=== PATIENT | female | born 1975 | race Caucasian/White ===

== ENCOUNTER 2020-04-10 14:48 | Outpatient (CLI) | payer OTHER, SELFPAY ==
[2020-04-10 11:56] LABS: Basophils Absolute Auto 0.1 K/mm3 (0.0-0.1); Basophils Percent Auto 0.8 % (0.2-1.2); Eosinophils Absolute Auto 0.1 K/mm3 (0-0.3); Eosinophils Percent Auto 1.4 % (0-4.4); Immature Granulocyte Absolute 0.02 K/mm3 (0.00-0.031); Immature Granulocyte Percent A 0.3 % (0-0.5); Lymphocytes Absolute Auto 1.75 K/mm3 (0.9-3.2); Lymphocytes Percent Auto 29.6 % (18.3-44.2); Mean Corpuscular HGB Conc 31.3 g/dl (32-36); Mean Corpuscular Hemoglobin 25.6 pg (26-34); Mean Corpuscular Volume 82.1 fl (80-100); Mean Platelet Volume 11.1 fl (7.4-10.4); Monocytes Absolute Auto 0.6 K/mm3 (0.1-0.6); Monocytes Percent Auto 9.6 % (2.6-8.5); Neutrophils Absolute Auto 3.5 K/mm3 (1.3-6.7); Neutrophils Percent Auto 58.3 % (45.5-73.1); Platelet Count Result 221 k/mm3 (150-375); Red Cell Distribution Width 15.5 % (11.5-14.5); White Blood Count 5.9 K/mm3 (4.5-10.0)
== END 2020-04-10 14:49 | disposition home or self-care (01) ==
LOC: ANHSURGERY 05-15 14:48
PROVIDERS: Visit Provider Obstetrics & Gynecology
DX: Z01.812 Encounter for preprocedural laboratory examination (principal); N93.9 Abnormal uterine and vaginal bleeding, unspecified
CPT/HCPCS: 36415; 85025; 86850; 86900; 86901

== ENCOUNTER 2020-04-14 02:33 | Outpatient (CLI) | payer OTHER, SELFPAY ==
[2020-04-14 22:41] LABS: SARS-CoV-2 RNA PCR Negative
== END 2020-04-14 02:34 | disposition home or self-care (01) ==
LOC: ANHCOVIDDT 02:33
PROVIDERS: Visit Provider Obstetrics & Gynecology
DX: Z01.818 Encounter for other preprocedural examination (principal); Z20.828 Contact with and (suspected) exposure to other viral communicable diseases
CPT/HCPCS: 87635; C9803; U0003

== ENCOUNTER 2020-04-17 00:07 | Day surgery (SDC) | payer OTHER, SELFPAY ==
[2020-04-08 10:49] VITALS: BMI 24.5
--- NOTE | 2020-04-14 14:14 | PM.IMHP ---
H&P: HPI History of Present Illness Date/Time: 04/14/20 14:14 Chief complaint: enlarge uterus,pelvic pain,exc bleeding Narrative: Muriel Gallegos is a 45 year old female who is admitted robotic hysterectomy and bilateral salpingectomy. She has pain and discomfort with a large fibroid uterus [id number] by ultrasound. She is finished with childbearing. Risks and benefits of this procedure reviewed including but not exclusive , aspiration pneumonia, bleeding, transfusion, perforation injury to bowel, bladder ureters, or other internal organs with need for laparotomy. She voiced good understanding. She had all questions answered. She asked to proceed Review of Systems Review of Systems: All systems reviewed & are unremarkable except as noted in HPI and below PMFSH Social History Social History Smoking status: Never smoker Spiritual care concerns: No Meds Home Medications and Allergies Home Medications Medication Instructions Recorded Confirmed Type multivitamin 1 tablet PO DAILY 04/08/20 04/08/20 History Allergies Allergy/AdvReac Type Severity Reaction Status Date / Time No Known Allergies Allergy Verified 04/08/20 10:58 Exam Const: General: no acute distress Eyes: General: appearance normal, both eyes and all related structures Neck: Neck: supple and no JVD Thyroid: thyroid normal Resp: Effort & Inspection: normal respiratory effort Auscultation: clear to auscultation bilaterally Cardio: Rate: regular rate Rhythm: regular rhythm GI: Inspection: non-distended GI Palp: Yes Soft to palpation, No Tenderness to palpation present (GI) and No Guarding due to palpation present (GI) Auscultation: normal bowel sounds : General: Yes bladder normal to inspection External Female Exam: normal external appearance Speculum Exam - Vagina: normal appearance of the vagina Speculum Exam - Cervix: normal appearance of the cervix Bimanual exam- vagina & uterus: enlarged Skin: General skin exam: no rashes or lesions noted Extrem: General: normal to inspection and no edema Psych: Mental Status: mental status grossly normal Affect: normal affect Assessment and Plan Additional Plan impression: Enlarged uterus and pelvic pain with fibroids Plan: Robotic total vaginal hysterectomy and bilateral salpingectomies
[2020-04-17] VITALS (16 sets, daily range): BP systolic 96–144; BP diastolic 52–92; PULSE 54–85; RESP 12–22; TEMP 36–37.1; O2SAT 93–100
--- NOTE | 2020-04-17 06:17 | WPDHPUPDATE1 ---
History and Physical Update Update Date/Time: 04/17/20 06:17 History and Physical has been reviewed, including an updated exam of the patient. There are NO changes in the patient's condition. Risks, benefits, and alternatives have been discussed and questions answered. Patient agrees to proceed with procedure.
[2020-04-17] MEDS: ACETAMINOPHEN 500 MG TABLET 1000 MG PO (07:51)
[2020-04-17] MEDS: KETOROLAC 15 MG/ML VIAL (*BKC) IV PUSH (08:09)
[2020-04-17] MEDS: LACTATED RINGERS 1,000 ML 30 ML IV CONT ×2 (08:15→11:07)
--- NOTE | 2020-04-17 08:21 | SUR.PREOP ---
pt with scabbed areas, dry skin to bilateral arms.
--- NOTE | 2020-04-17 08:26 | WPDANESEPPF ---
Anes - Initial Pre Proc Eval Procedure: Operation Date: 04/17/20 09:30 Proposed Procedures p Robotic Assisted Total Vaginal Hysterectomy, Bilateral Salpingectomy - Delbert Gunter MD Date/Time: 04/17/20 08:26 Surgeon: Delbert Gunter MD Pre Op Diagnosis: enlarge uterus,pelvic pain,exc bleeding Patient Data Age: 45 Gender: F Height: 5 ft 4.5 in Weight: 67.55 kg Last Vital Signs Temp 36.2 C L 04/17/20 07:35 Pulse 65 04/17/20 07:35 Resp 16 04/17/20 07:35 BP 137/79 04/17/20 07:35 Pulse Ox 100 04/17/20 07:35 Allergies Allergy/AdvReac Type Severity Reaction Status Date / Time No Known Allergies Allergy Verified 04/08/20 10:58 Home Medications Medication Instructions Recorded Confirmed Type multivitamin 1 tablet PO DAILY 04/08/20 04/17/20 History hydrocodone-acetaminophen [[place]] 1 tablet PO Q4H PRN #30 tablet 04/17/20 Rx Patient hx anesthesia problems: none Family hx anesthesia problems: none [facility] Surgical History Surgical History (Updated 04/17/20 @ 08:27 by Delbert Castillo MD) History of cholecystectomy Social History Social History Smoking status: Never smoker Living arrangements: with family Spiritual care concerns: No Anes - Eval Final PreProcedure Day of Procedure 04/17/20 08:26 Patient weight: normal Heart: regular rate and rhythm Lungs: clear to auscultation Airway: Mallampati scale class 1 Neurological: alert and oriented ASA classification: I Emergent: no Anesthetic plan: proceed Anesthesia type and monitoring: general ETT and standard monitoring Informed Consent: The patient's anesthetic plan and its attendant risks and benefits were discussed with the patient/family/POA. Questions were solicited and answers provided to the satisfaction of the patient/family/POA.
[2020-04-17] MEDS: ceFAZolin 2 GM/D5W 50 ML 2 GM/50 ML BAG IVPB (08:55)
--- NOTE | 2020-04-17 10:57 | PM.PROC ---
Procedure Note - Detailed Date of procedure: 04/17/20 Pre-op diagnosis: enlarge uterus,pelvic pain,exc bleeding Surgeon: Delbert Gunter MD Postop diagnosis: Enlarged uterus/pelvic pain/excessive bleeding/extensive adhesions Procedure: Robotic total vaginal hysterectomy and bilateral salpingectomy. Extensive lysis of adhesions Anesthesia: General endotracheal EBL: 100cc Findings: A markedly enlarged fibroid uterus. Adhesions completely encasing the uterus cervix and ovaries. And extended spring from a missed placed Essure on the right fallopian tube. Complications: None adhesions and Ms. placement of the Essure device on the right were noted. Description of procedure: The patient was prepped and draped in the normal sterile fashion and placed in the dorsal lithotomy position. Under excellent general endotracheal anesthesia a weighted speculum was placed in posterior fornix of vagina. The anterior lip of the cervix was grasped with single-tooth tenaculum and the uterus sounded to 10cm. Serial dilatation with fragmented dilators performed followed by passes the 10. DAYSI and the 3. Cold cup. Next the 16 [place] catheter was placed. Weighted speculum and other instruments removed. The gloves were changed. A supraumbilical incision made and the Veress needle passed in the abdomen. The abdomen was filled with CO2 gas [id number]. The 8mm trocar advanced in the abdomen. Downside visualized and no injury seen. The patient placed in Trendelenburg and right and left lateral quadrant incisions made. The 8mm trocars were advanced under direct visualization assuring no injury. Her right upper quadrant incision made the 10mm trocar advanced under direct visualization assuring no injury. The robot was docked. Attention was turned to the corrections counselor. Adhesions were noted in the uterus could not be seen due to the omentum completely surrounding the uterus ovaries and tubes. Using sharp dissection this was brought dissected. It was noted at the right fallopian tubes as the Essure device had been placed incorrectly and was caught up in the omentum. This was stuck to the back of the uterus as well. Using sharp dissection this was grasped and eventually removed. Eventually the omentum was able to be removed. Anteriorly the there was complete adhesions from the uterus to the bladder and anterior abdominal wall layer by layer this was dissected until the cervix could be seen. Next the left round ligament was grasped, burned, cut his and a bladder flap was formed anteriorly across to the opposite round ligament was clamped, burned, cut. The adhesions were released then from the ovary and tube complex on the left and the tube was sharply dissected to be removed through with the uterine specimen. The uterus was noted be large and bulbous consistent with fibroids. The right fallopian tube was then gently dissected from the ovary as well. Conserving the left ovary the utero-ovarian ligament was clamped, burned, cut and brought to the level of previously cut round ligament. In like fashion right utero-ovarian ligament was clamped, burned, cut and brought to the level of the previously cut round ligament conserving the right ovary. The cardinal and broad ligaments on the left were serially skeletonized brought down the lateral edge of the uterus clamped, burned, cut until the uterine vessels could be seen these were large tortuous and were individually clamped, burned, cut. In like fashion the cardinal and broad ligaments on the left plantar the right were clamped, burned, cut and brought down the lateral edge until the uterine vessels on the right could be seen. These were individually clamped, burned, cut. Blanching the uterus was seen a colpotomy incision was made. At that point the uterus was noted to be too big and bivalve was undertaken to expose the large central fibroid which was bigger than the size of a baseball. The uterus was removed through the vagina an
[2020-04-17] MEDS: DEXTROSE 5%/LACTATED RINGERS 1,000 ML 125 ML IV CONT ×2 (12:39→20:39)
[2020-04-17] MEDS: ONDANSETRON INJ 4 MG/2 ML VIAL IV PUSH ×2 (12:46→19:38)
[2020-04-17] MEDS: PROMETHAZINE HCL 25 MG/ML AMPUL 12.5 MG IV PUSH (15:18)
--- NOTE | 2020-04-17 16:41 | ADMGEN ---
This patient, Muriel Gallegos, was admitted to OB 2nd Floor Room 289-00. Patient/family oriented to hospital policies and general routines including ID bracelet, bed and alarms, visiting hours, pain management, procedures, bathroom and other care routines, personal items, smoking policy, room service/diet, and visiting hours. Information on how to activate the Rapid Response Team has been discussed. Patient/Family are encouraged to report perceived risks to care and to ask questions if they do not understand what they are told or what they should do.
[2020-04-17] MEDS: KETOROLAC 30 MG/ML VIAL (*BKC) IV PUSH (19:37)
[2020-04-18 00:50] VITALS: BP 119/73; PULSE 83; RESP 16; TEMP 38.1; O2SAT 99
[2020-04-18 03:35] VITALS: BP 129/83; PULSE 76; RESP 14; TEMP 38; O2SAT 100
[2020-04-18 04:55] LABS: Basophils Percent Auto 0.3 % (0.2-1.2); Eosinophils Percent Auto 0.6 % (0-4.4); Hematocrit 29.4 % (37.0-47.0); Hemoglobin 9.2 g/dL (12.0-15.0); Immature Granulocyte Absolute 0.02 K/mm3 (0.00-0.031); Immature Granulocyte Percent A 0.3 % (0-0.5); Lymphocytes Absolute Auto 1.45 K/mm3 (0.9-3.2); Lymphocytes Percent Auto 22.9 % (18.3-44.2); Mean Corpuscular HGB Conc 31.3 g/dl (32-36); Mean Corpuscular Hemoglobin 25.4 pg (26-34); Mean Corpuscular Volume 81.2 fl (80-100); Mean Platelet Volume 11.1 fl (7.4-10.4); Monocytes Absolute Auto 0.6 K/mm3 (0.1-0.6); Monocytes Percent Auto 8.7 % (2.6-8.5); Neutrophils Absolute Auto 4.3 K/mm3 (1.3-6.7); Neutrophils Percent Auto 67.2 % (45.5-73.1); Platelet Count Result 231 k/mm3 (150-375); Red Blood Count 3.62 M/mm3 (4.2-5.4); White Blood Count 6.3 K/mm3 (4.5-10.0)
--- NOTE | 2020-04-18 08:00 | PC.NURSE ---
PT introductions made and plan of care discussed per post up creative director surgery, pain management, daily care activities and pending discharge to home. PT verbalized understanding of such care.
--- NOTE | 2020-04-18 08:19 | PM.OBPNVD ---
OB - PN: Subj Subjective Date/time seen: 04/18/20 08:19 Patient comments: no complaints and pain well controlled OB - PN: Obj Data Labs CBC & Chem 7: 04/18/20 03:43 Labs: Laboratory Results - last 24 hr 04/18/20 03:43 WBC 6.3 RBC 3.62 L Hgb 9.2 L Hct 29.4 L MCV 81.2 MCH 25.4 L MCHC 31.3 L RDW 15.0 H Plt Count 231 MPV 11.1 H Immature Gran % (Auto) 0.3 Neut % (Auto) 67.2 Lymph % (Auto) 22.9 [place] % (Auto) 8.7 H Eos % (Auto) 0.6 Baso % (Auto) 0.3 Lymph # (Auto) 1.45 [place] # (Auto) 0.6 Eos # (Auto) 0.0 Baso # (Auto) 0.0 Abs Immat Gran (auto) 0.02 Absolute Neuts (auto) 4.3 Absolute Nucleated RBC 0.0 Nucleated RBC % 0.0 OB - PN A/P Plan day: 1 Plan: discharge home and follow up 6 weeks (Follow-up 2 weeks) Time Spent With Patient Time: Total time spent is greater than 50% in coordination of care (as documented) at patient's floor/unit and/or counseling patient: Time with patient: less than 15 minutes Review of Systems Review of Systems: All systems reviewed & are unremarkable except as noted in HPI and below Exam Const: General: no acute distress Eyes: General: appearance normal, both eyes and all related structures Neck: Neck: supple and no JVD Thyroid: thyroid normal Resp: Effort & Inspection: normal respiratory effort Auscultation: clear to auscultation bilaterally Cardio: Rate: regular rate Rhythm: regular rhythm GI: Inspection: incision (: Superior clear dry and intact) : General: Yes bladder normal to palpation External Female Exam: normal external appearance Speculum Exam - Vagina: normal vaginal discharge and No vaginal bleeding Speculum Exam - Cervix: nontender Bimanual exam- vagina & uterus: bladder normal to palpation and No Cervical tenderness present OB/external & speculum: No vaginal bleeding Skin: General skin exam: no rashes or lesions noted Extrem: General: normal to inspection and no edema Psych: Mental Status: mental status grossly normal Affect: normal affect
--- NOTE | 2020-04-18 08:20 | P.DS_ITS ---
DS: Admitting Diagnosis Admitting Diagnosis Admitting Diagnosis: bleeding pelvic pain enlarged uterus DS: Summary Hospital Course Hospital Course: Her hospital course was unremarkable please see previous remarks Time Spent with Patient Time attestation: Total time spent providing and/or coordinating discharge services: Patient was admitted for robotic total vaginal hysterectomy and bilateral salpingectomy. She had an enlarged uterus and a large amount of adhesions. Her hospital course was unremarkable. She remained afebrile. She was up, voiding without difficulty, bleeding bleeding was negligible. Voiding without difficulty, passing gas, ambulating, and general without complaints. Exam Const: General: no acute distress Eyes: General: appearance normal, both eyes and all related structures Neck: Neck: supple and no JVD Thyroid: thyroid normal Resp: Effort & Inspection: normal respiratory effort Auscultation: clear to auscultation bilaterally Cardio: Rate: regular rate Rhythm: regular rhythm GI: Inspection: non-distended GI Palp: Yes Soft to palpation, No Tenderness to palpation present (GI) and No Guarding due to palpation present (GI) Auscultation: normal bowel sounds : General: Yes bladder normal to palpation External Female Exam: normal external appearance Speculum Exam - Vagina: normal vaginal discharge and No vaginal bleeding Speculum Exam - Cervix: nontender Bimanual exam- vagina & uterus: bladder normal to palpation and No Cervical tenderness present OB/external & speculum: No vaginal bleeding Skin: General skin exam: no rashes or lesions noted Extrem: General: normal to inspection and no edema Psych: Mental Status: mental status grossly normal Affect: normal affect DS: Data Data Completed and Pending Pending studies at discharge: Pending at discharge 04/17/20 09:30 Surgical [PTH] Routine Labs on day of discharge: Labs from last 24 hours 04/18/20 03:43 WBC 6.3 RBC 3.62 L Hgb 9.2 L Hct 29.4 L MCV 81.2 MCH 25.4 L MCHC 31.3 L RDW 15.0 H Plt Count 231 MPV 11.1 H Immature Gran % (Auto) 0.3 Neut % (Auto) 67.2 Lymph % (Auto) 22.9 [place] % (Auto) 8.7 H Eos % (Auto) 0.6 Baso % (Auto) 0.3 Lymph # (Auto) 1.45 [place] # (Auto) 0.6 Eos # (Auto) 0.0 Baso # (Auto) 0.0 Abs Immat Gran (auto) 0.02 Absolute Neuts (auto) 4.3 Absolute Nucleated RBC 0.0 Nucleated RBC % 0.0 Discharge Plan Discharge Patient Disposition: Home, Self-Care Patient Instructions: Pain Management (DC), Laparoscopic Hysterectomy (DC) Stand Alone Forms: General Discharge Instructions Follow-up/Referrals: Delbert Gunter MD [Physician] - Discharge Medications: New hydrocodone-acetaminophen [[place]] 5-325 mg tablet 1 tablet PO Q4H PRN (Reason: pain) Qty: 30 RF: 0 Continued multivitamin Tablet 1 tablet PO DAILY RF: 0
[2020-04-18 08:55] VITALS: BP 136/80; PULSE 79; RESP 18; TEMP 37.1; O2SAT 99
[2020-04-18 09:30] VITALS: BP 136/80; PULSE 79; RESP 18; TEMP 37.1; O2SAT 99
[2020-04-18] MEDS: ACETAMINOPHEN 500 MG TABLET 1000 MG (09:30)
[2020-04-18] MEDS: IBUPROFEN 600 MG TABLET PO (09:38)
[2020-04-18] MEDS: DOCUSATE SODIUM 100 MG CAPSULE PO (09:38)
[2020-04-18] MEDS: SIMETHICONE 80 MG TAB.CHEW PO (09:38)
[2020-04-18] MEDS: ENOXAPARIN 40 MG/0.4 ML SYRINGE SUB-Q (09:38)
--- NOTE | 2020-04-18 11:25 | WPDANESPN ---
Anes - Prog Note Post-Op Date/Time: 04/18/20 11:25 Cardiovascular status: normal Respiratory status: normal Airway patency: baseline Mental status: baseline Post-Op hydration status: normal Vital Signs: Last Vital Signs Temp 38.0 C H 04/18/20 03:35 Pulse 76 04/18/20 03:35 Resp 14 04/18/20 03:35 BP 129/83 04/18/20 03:35 Pulse Ox 100 04/18/20 03:35 Pain Score (VAS): 06/10 I/O: Intake & Output 04/17/20 04/18/20 04/18/20 23:59 07:59 15:59 Intake Total 1050 100 Output Total 375 1025 Balance 675 -925 Laboratory Tests 04/18/20 03:43 04/18/20 03:43 WBC 6.3 RBC 3.62 L Hgb 9.2 L Hct 29.4 L MCV 81.2 MCH 25.4 L MCHC 31.3 L RDW 15.0 H Plt Count 231 MPV 11.1 H Immature Gran % (Auto) 0.3 Neut % (Auto) 67.2 Lymph % (Auto) 22.9 [place] % (Auto) 8.7 H Eos % (Auto) 0.6 Baso % (Auto) 0.3 Lymph # (Auto) 1.45 [place] # (Auto) 0.6 Eos # (Auto) 0.0 Baso # (Auto) 0.0 Abs Immat Gran (auto) 0.02 Absolute Neuts (auto) 4.3 Absolute Nucleated RBC 0.0 Nucleated RBC % 0.0 Post-procedural complaints: none Patient Feedback: Patient satisfied with anesthetic care.
--- NOTE | 2020-04-18 11:30 | PC.NURSE ---
Pt received discharge instructions per protocol and verbalized understanding of such care.
--- NOTE | 2020-04-18 11:40 | PC.NURSE ---
PT discharged to home via wheelchair to waiting car accompanied by spouse. PT confirmed follow up appts
== END 2020-04-18 11:40 | disposition home or self-care (01) ==
LOC: ANHSURGERY 07:22 → ANHOB2 12:19
PROVIDERS: Visit Provider Obstetrics & Gynecology
PROC: (CPT 58554; principal; 2020-04-17 09:30)
DX: D25.1 Intramural leiomyoma of uterus (principal); N80.0 Endometriosis of uterus; N73.6 Female pelvic peritoneal adhesions (postinfective)
CPT/HCPCS: 58554; S2900; 36415; 85025; 88307; 99199; A9270; J0690; J1100; J1170; J1650; J1885; J2250; J2405; J2550; J2704; J2710; J3010; J7030; J7120; J7121; Q9968